=== PATIENT | female | born 1995 | race Caucasian/White ===

== ENCOUNTER 2022-03-14 14:37 | Outpatient (CLI) | payer MEDICAID ==
[2022-03-14 15:44] VITALS: BP 103/66
[2022-03-14] MEDS ORDERED: LACTATED RINGERS 500 ML IV ONE (15:58)
== END 2022-03-14 16:47 | disposition home or self-care (01) ==
LOC: TRG 14:37 → APU 14:41 → TRG 16:47
PROVIDERS: ATTEND Obstetrics & Gynecology
DX: Z34.93 Encounter for supervision of normal pregnancy, unspecified, third trimester (principal); Z3A.34 34 weeks gestation of pregnancy
CPT/HCPCS: 59025

== ENCOUNTER 2022-04-20 20:19 | Inpatient (IN) | payer MEDICAID ==
[2022-04-20] MEDS ORDERED: METHYLERGONOVINE MALEATE 0.2 MG/ML VIAL IM PRN (20:48)
[2022-04-20] MEDS ORDERED: ACETAMINOPHEN 325 MG TAB PO PRN (20:48)
[2022-04-20] MEDS ORDERED: LIDOCAINE (2%) 20 MG/1 ML VIAL 20 ML MDV INFILTRATI ONE (20:48)
[2022-04-20] MEDS ORDERED: miSOPROStol 200 MCG TAB PR PRN (20:48)
[2022-04-20] MEDS ORDERED: LOPERAMIDE 2 MG CAP PO PRN (20:48)
[2022-04-20] MEDS ORDERED: MINERAL OIL 30 ML ORAL LIQD PO PRN (20:48)
[2022-04-20] MEDS ORDERED: TERBUTALINE 1 MG/1 ML INJ SUB-Q PRN (20:48)
[2022-04-20] MEDS ORDERED: fentaNYL 100 MCG/2 ML INJ IV PRN (20:48)
[2022-04-20] MEDS ORDERED: OXYTOCIN 10 UNIT/1 ML INJ IM PRN (20:48)
[2022-04-20] MEDS ORDERED: CARBOPROST TROMETHAMINE 250 MCG/1 ML INJ IM PRN (20:48)
[2022-04-20] MEDS ORDERED: BUTORPHANOL 2 MG/1 ML INJ IV PRN ×2 (20:48)
[2022-04-20] MEDS ORDERED: ePHEDrine SULFATE 50 MG/1 ML INJ IV PRN (20:48)
[2022-04-20] MEDS ORDERED: OXYTOCIN DRIP 30 UNITS/500 ML BAG IV SCH ×2 (21:00)
[2022-04-20] MEDS ORDERED: LACTATED RINGERS 1,000 ML IV SCH (21:00)
[2022-04-20 22:11] LABS: Hematocrit 35.1 % (30.3-42.9); Hemoglobin 11.6 gm/dl (10.1-14.3); Mean Corpuscular HGB Conc 33 % (30-34); Mean Corpuscular Volume 83 fl (79-97); Platelet Count 195 K/mm3 (140-440); Red Blood Count 4.25 M/mm3 (3.65-5.03); Red Cell Distribution Width 15.5 % (13.2-15.2)
[2022-04-21] MEDS ORDERED: ePHEDrine SULFATE 50 MG/1 ML INJ IV PRN (00:32)
[2022-04-21] MEDS ORDERED: NALOXONE 0.4 MG/1 ML INJ IV PRN (00:32)
--- NOTE | 2022-04-21 00:34 | Anesthesia Consultation ---
Anesthesia Consult and Med Hx - Airway Anesthetic Teeth Evaluation: Good ROM Head & Neck: Adequate Mental/Hyoid Distance: Adequate Mallampati Class: Class II Intubation Access Assessment: Good - Pulmonary Exam CTA: Yes - Cardiac Exam Cardiac Exam: RRR - Pre-Operative Health Status ASA Pre-Surgery Classification: ASA2 Proposed Anesthetic Plan: Epidural - Pulmonary Hx Smoking: No Hx Asthma: Yes (ATTACK AUG 2021) Hx Respiratory Symptoms: No SOB: No COPD: No Home Oxygen Therapy: No Hx Pneumonia: No Hx Sleep Apnea: No - Cardiovascular System Hx Hypertension: No Hx Coronary Artery Disease: No Hx Heart Attack/AMI: No Hx Angina: No Hx Percutaneous Transluminal Coronary Angioplasty (PTCA): No Hx Cardia Arrhythmia: No Hx Pacemaker: No Hx Internal Defibrillator: No Hx Valvular Heart Disease: No Hx Heart Murmur: No Hx Peripheral Vascular Disease: No - Central Nervous System Hx Neuromuscular Disorder: No Hx Seizures: No CVA: No Hx Back Pain: No Hx Psychiatric Problems: No - Gastrointestinal Hx Ulcer: No Hx Gastroesophageal Reflux Disease: No - Endocrine Hx Renal Disease: No Hx End Stage Renal Disease: No Hx Cirrhosis: No Hx Liver Disease: No Hx Insulin Dependent Diabetes: No Hx Non-Insulin Dependent Diabetes: No Hx Thyroid Disease: No Hx Hypothyroidism: No Hx Hyperthyroidism: No - Hematic Hx Anemia: Yes (In first ) Hx Sickle Cell Disease: No - Other Systems Hx Alcohol Use: No Hx Substance Use: No Hx Cancer: No Hx Obesity: Yes
[2022-04-21] MEDS ORDERED: fentaNYL-BUPIV 2 MCG/ML-0.125% 200 MCG/100 ML BAG EPIDURAL SCH (01:00)
--- NOTE | 2022-04-21 01:02 | Progress Note ---
Labor Epidural - Labor Epidural Start Time: 00:36 Stop Time: 00:46 Performed by:: ALKA SERRANO Procedure: MEHDI done at BS. Labs reviewed. Consent signed. TO preformed. Maintained sterility. ADIA at 7.5cm at L3-4 x 1. Cath at 12 cm at skin. Test dose neg. Pt jamal well. WIll continue to monitor.
--- NOTE | 2022-04-21 06:36 | History and Physical Report ---
History of Present Illness Date of examination: 04/21/22 Date of admission: 04/20/22 20:48 Chief complaint: Leakage of fluid History of present illness: 27-year-old -0-1-2 at 39 +2 weeks. The patient presents to labor and delivery in active labor. She reports having leakage of fluid. The patient initiated care in the first trimester of her . Her course has been uncomplicated. Patient is GBS negative Past History Past Medical History: asthma Past Surgical History: no surgical history Social history: - Obstetrical History Expected Date of Delivery: 04/26/22 Actual Gestation: 39 Week(s) 2 Day(s) : 4 Para: 2 Hx # Term Pregnancies: 2 Number of Pregnancies: 0 Spontaneous Abortions: 1 Induced : 0 Number of Living Children: 2 Medications and Allergies Allergies Allergy/AdvReac Type Severity Reaction Status Date / Time No Known Allergies Allergy Verified 04/20/22 20:47 Home Medications Medication Instructions Recorded Confirmed Last Taken Type Docusate Sodium [Colace] 100 mg PO BID PRN #60 capsule 01/15/15 Unknown Rx Ferrous Sulfate [Feosol 325 MG tab] 325 mg PO BID #60 tablet 01/15/15 Unknown Rx HYDROcodone/APAP 5-325 [[place] 1 each PO Q6HR PRN #20 tablet 01/15/15 Unknown Rx 5/325] Ibuprofen [Motrin] 800 mg PO TID PRN #60 tablet 01/15/15 Unknown Rx Active Meds: Active Medications Acetaminophen (Acetaminophen 325 Mg Tab) 650 mg PO Q4H PRN PRN Reason: Pain, Mild (1-3) Butorphanol Tartrate (Butorphanol 2 Mg/1 Ml Inj) 2 mg IV Q2H PRN PRN Reason: Pain , Severe (7-10) Butorphanol Tartrate (Butorphanol 2 Mg/1 Ml Inj) 1 mg IV Q2H PRN PRN Reason: Pain, Moderate(4-6) LABOR PAIN Carboprost Tromethamine (Carboprost Tromethamine 250 Mcg/1 Ml Inj) 250 mcg IM ONCE PRN PRN Reason: Uterine Bleeding Ephedrine Sulfate (Ephedrine Sulfate 50 Mg/1 Ml Inj) 10 mg IV Q2M PRN PRN Reason: Hypotension Fentanyl (Fentanyl 100 Mcg/2 Ml Inj) 100 mcg IV Q2H PRN PRN Reason: Pain,Severe (7-10) LABOR PAIN Oxytocin/Sodium Chloride (Pitocin/Ns 30 Unit/500ml) 30 units in 500 mls @ 2 mls/hr IV TITR SOLE; Protocol Last Titration: 04/21/22 06:23 Dose: 2 ml/hr, 2 mls/hr Lactated Ringer's (Lactated Ringers) 1,000 mls @ 125 mls/hr IV DIRECT SOLE Last Admin: 04/20/22 23:42 Dose: 125 mls/hr Oxytocin/Sodium Chloride (Pitocin/Ns 30 Unit/500ml) 30 units in 500 mls @ 40 mls/hr IV TITR SOLE; Protocol Fentanyl/Bupivacaine/Sodium Chlor (Fentanyl-Bupiv 2 Mcg/Ml-0.125%) 200 mcg in 100 mls @ 12 mls/hr EPIDURAL TITR SOLE; Protocol Last Admin: 04/21/22 01:23 Dose: 12 mls/hr Loperamide HCl (Loperamide 2 Mg Cap) 2 mg PO ONCE PRN PRN Reason: give with Hemabate Methylergonovine Maleate (Methylergonovine Maleate 0.2 Mg/Ml Vial) 0.2 mg IM ONCE PRN PRN Reason: Uterine Bleeding Mineral Oil (Mineral Oil 30 Ml Oral Liqd) 30 ml PO QHS PRN PRN Reason: Constipation Misoprostol (Misoprostol 200 Mcg Tab) 800 mcg NV ONCE PRN PRN Reason: Uterine Bleeding Naloxone HCl (Naloxone 0.4 Mg/1 Ml Inj) 0.2 mg IV Q5MIN PRN PRN Reason: Respiratory sedation Oxytocin (Oxytocin 10 Unit/1 Ml Inj) 10 unit IM ONCE PRN PRN Reason: Uterine Bleeding Terbutaline Sulfate (Terbutaline 1 Mg/1 Ml Inj) 0.25 mg SUB-Q ONCE PRN PRN Reason: Hyperstimulation/Hypertonicity Review of Systems All systems: negative Genitourinary: leakage of fluid, contractions - Vital Signs Vital signs: Vital Signs Pulse Pulse Ox 85 98 04/20/22 20:38 04/20/22 20:38 Temp Pulse Resp BP Pulse Ox 98.6 F 87 17 109/67 98 04/21/22 06:23 04/21/22 06:34 04/20/22 22:39 04/21/22 05:50 04/21/22 06:34 - Physical Exam Breasts: Positive: deferred Cardiovascular: Regular rate Lungs: Positive: Clear to auscultation Abdomen: Positive: normal appearance Results Result Diagrams: 04/20/22 21:30 Abnormal lab results 04/20/22 Range/Units 21:30 WBC 11.3 H (4.5-11.0) K/mm3 MCH 27 L (28-32) pg RDW 15.5 H (13.2-15.2) % All other labs normal. Assessment and Plan - Patient Problems (1) Active labor at term Current Visit: Yes Status: Acute Plan to address problem: Admit to labor and delivery
[2022-04-21] MEDS ORDERED: KETOROLAC 30 MG/1 ML INJ IV NR (09:25)
[2022-04-21] MEDS ORDERED: HYDROcodone/ACETAMINOPHEN 5-325 MG TAB PO PRN (11:41)
[2022-04-21] MEDS ORDERED: WITCH HAZEL/ GLYCERIN PAD TP PRN (11:41)
[2022-04-21] MEDS ORDERED: MAGNESIUM HYDROXIDE (MOM) ORAL LIQD UDC PO PRN (11:41)
[2022-04-21] MEDS ORDERED: LANOLIN/ZINC/DIMETHICONE (LANSINOH) 7 GM TP PRN (11:41)
--- NOTE | 2022-04-21 21:05 | Procedure Note ---
OB Delivery Note - Delivery Date of Delivery: 04/21/22 Surgeon: WING ABRAMS Estimated blood loss: 100cc - Vaginal Delivery presentation: vertex Delivery position: OA Delivery monitor: external FHT, external uterine Route of delivery: Delivery placenta: spontaneous Delivery cord: 3 umbilical vessels Episiotomy: none Delivery laceration: none Anesthesia: epidural - Infant A at 1 minute: 8 at 5 minutes: 9 Infant Gender: Male (weighy 7lbs 4oz)
[2022-04-21] MEDS: IBUPROFEN 800 MG TAB PO PRN (21:42)
[2022-04-21 21:59] LABS: Hematocrit 31.7 % (30.3-42.9); Hemoglobin 10.3 gm/dl (10.1-14.3)
[2022-04-22] MEDS: IBUPROFEN 800 MG TAB PO PRN ×2 (06:12→12:15)
--- NOTE | 2022-04-22 11:23 | Progress Note ---
Assessment and Plan A: PPD#1 s/p at term P: Routine care Discharge home today per pt request Subjective - Subjective Date of service: 04/22/22 Principal diagnosis: s/p at term Interval history: Pt feels well. She is hoping to go home today. Patient reports: appetite normal, voiding normally, pain well controlled, ambulating normally [place]: doing well Objective - Vital Signs Latest vital signs: Vital Signs Temp Pulse Resp BP Pulse Ox Pulse Ox 04/22/22 09:20 100 04/22/22 08:11 97.6 F 72 18 106/71 98 04/22/22 06:58 18 04/22/22 06:12 18 04/22/22 00:04 97.8 F 63 20 95/53 97 04/21/22 22:42 18 04/21/22 21:42 20 04/21/22 20:45 98.9 F 76 20 114/73 96 04/21/22 20:00 100 04/21/22 15:45 98.1 F 56 L 16 105/59 99 Intake and Output 04/21/22 04/22/22 04/22/22 22:59 06:59 14:59 Intake Total 360 480 Balance 360 480 Intake: Oral 240 Intake, Free Water 120 480 Other: Total, Intake Amount 240 Voiding Method Toilet # Voids Void 1 1 - Exam Breasts: Present: deferred Abdomen: Present: soft (obese ) Extremities: Present: edema (trace)
--- NOTE | 2022-04-22 11:23 | Discharge Summary ---
Providers - Providers Date of Admission: 04/20/22 20:48 Date of discharge: 04/22/22 Attending physician: WING ABRAMS Primary care physician: WING ABRAMS Hospitalization Reason for admission: rupture of membranes Delivery: Procedure details: Please see delivery note Episiotomy: none Laceration: none Other procedures: none complications: none Discharge diagnosis: IUP at term delivered baby: male Hospital course: Patient was admitted with rupture of membranes at term and went on to have a spontaneous vaginal delivery which she tolerated well. Her course uncomplicated and she met discharge criteria on day #1. She will follow-up in the office in 6 weeks. Condition at discharge: Stable Disposition: 01 HOME / SELF CARE / HOMELESS - Discharge Diagnoses (1) Rupture of membranes Status: Acute (2) Term of male Status: Acute Plan - Discharge Medications Prescriptions: Ferrous Sulfate [Feosol 325 MG tab] 325 mg PO BID #60 tablet Ibuprofen [Motrin] 800 mg PO Q8HR PRN #30 tablet PRN Reason: Pain, Moderate (4-6) - Provider Discharge Summary Activity: routine, no sex for 6 weeks, no heavy lifting 4 weeks, no strenuous exercise Diet: routine Instructions: routine Additional instructions: [] Smoking cessation referral if applicable(refer to patient education folder for contact #) [] Refer to [facility]'s [facility] Booklet Call your doctor immediately for: * Fever > 100.5 * Heavy vaginal bleeding ( >1 pad per hour) * Severe persistent headache * Shortness of breath * Reddened, hot, painful area to leg or breast * Drainage or odor from incision. * Keep incision clean and dry at all times and follow doctor's instructions regarding bathing/showering - Follow up plan Follow up: [facility]STILLO, MANAGER [facility] [Advanced Practice Nurse] - 6 Weeks (Please call to schedule appointment)
[2022-04-22] MEDS ORDERED: MEASLES, MUMPS & RUBELLA 12,500 UNIT/0.5 ML VACCINE SUB-Q ONE (11:41)
[2022-04-22] MEDS ORDERED: TETANUS,DIPH,PERTUSS(ACELL) VACCINE 0.5 ML SYRINGE IM ONE (11:45)
[2022-04-22 16:51] VITALS: BP 112/76
== END 2022-04-22 15:53 | disposition home or self-care (01) | DRG 775 ==
LOC: TRG 20:19 → APU 20:21 → LD 20:48 → TRG 20:48 → OB 04-21 11:21
PROVIDERS: ADMIT Obstetrics & Gynecology; ATTEND Obstetrics & Gynecology
PROC: 10E0XZZ Delivery of Products of Conception, External Approach (ICD-10-PCS; principal; 2022-04-21)
PROC: 3E0R3BZ Introduction of Anesthetic Agent into Spinal Canal, Percutaneous Approach (ICD-10-PCS; 2022-04-21)
PROC: 00HU33Z Insertion of Infusion Device into Spinal Canal, Percutaneous Approach (ICD-10-PCS; 2022-04-21)
PROC: 3E0234Z Introduction of Serum, Toxoid and Vaccine into Muscle, Percutaneous Approach (ICD-10-PCS; 2022-04-22)
DX: O99.52 Diseases of the respiratory system complicating childbirth (principal); Z20.822 Contact with and (suspected) exposure to COVID-19; J45.909 Unspecified asthma, uncomplicated; Z3A.39 39 weeks gestation of pregnancy; Z37.0 Single live birth; Z23 Encounter for immunization
CPT/HCPCS: 36415; 85014; 85018; 85027; 86592; 86850; 86900; 86901; G0378; J3490; J1885; J2590; J7120; U0003